=== PATIENT | male | born 1985 | race Caucasian/White ===

== ENCOUNTER 2017-12-01 18:25 | Emergency (ER) | payer SELFPAY ==
[~2017-12-01] VITALS: Ht 172.7 cm; Wt 78.0 kg
[2017-12-01 20:46] VITALS: BP 127/81
== END 2017-12-01 20:48 | disposition home or self-care (01) ==
LOC: ER 19:19
DX: R55 Syncope and collapse (principal); R11.2 Nausea with vomiting, unspecified; R42 Dizziness and giddiness
CPT/HCPCS: 93005; 99283